=== PATIENT | male | born 1975 | race Caucasian/White ===

== ENCOUNTER → 2024-08-21 | Day surgery (SDC) | payer OTHER ==
[~2024-08-21] MED LIST: BUPIVACAINE HCL/PF 0.25% (2.5MG/ML) 10 ML VIAL ONE; KETOROLAC TROMETHAMINE 30 MG/1 ML VIAL ONE; ONDANSETRON 4 MG/2 ML VIAL ONE
== END | disposition home or self-care (01) ==
LOC: JASU-SURG 04:14
PROVIDERS: ATTEND Physical Medicine & Rehabilitation
DX: Z53.20 Procedure and treatment not carried out because of patient's decision for unspecified reasons (principal)